=== PATIENT | female | born 1990 | race Hispanic/Latino ===

== ENCOUNTER 2021-05-23 22:35 | Emergency (ER) | payer SELFPAY ==
[~2021-05-23] VITALS: Ht 162.6 cm; Wt 81.6 kg
[2021-05-23] MEDS ORDERED: ONDANSETRON HCL INJ 2MG/ML 2ML 2 MG/ML VIAL IV STA (22:52)
[2021-05-23] MEDS ORDERED: SODIUM CHLORIDE 0.9% 1000ML 1,000 ML IV SCH (23:00)
[2021-05-23] MEDS ORDERED: DEXAMETHASONE SOD PHOS INJ 4 MG/ML VIAL IV ONE (23:00)
[2021-05-23] MEDS ORDERED: ONDANSETRON HCL INJ 2MG/ML 2ML 2 MG/ML VIAL ONE (23:04)
[2021-05-23] MEDS ORDERED: DEXAMETHASONE SOD PHOS INJ 4 MG/ML VIAL ONE (23:05)
[2021-05-23] MEDS ORDERED: SODIUM CHLORIDE 0.9% 1000ML 1,000 ML ONE (23:05)
[2021-05-23] MEDS ORDERED: PREDNISONE20 MG PO (23:26)
[2021-05-23] MEDS ORDERED: ONDANSETRON ODT4 MG PO (23:26)
== END 2021-05-23 23:55 | disposition home or self-care (01) ==
LOC: FSED 22:52
DX: R50.9 Fever, unspecified (principal); R11.2 Nausea with vomiting, unspecified; U07.1 COVID-19
CPT/HCPCS: 96374; 96376; 99282; J1100; J2405; J7030

== ENCOUNTER 2021-05-27 00:07 | Inpatient (IN) | payer SELFPAY ==
[2021-05-27] VITALS (7 sets, daily range): BP systolic 105–110; BP diastolic 57–70
[~2021-05-27] VITALS: Ht 160 cm; Wt 81.6 kg
[~2021-05-27 00:07] MED LIST: ONDANSETRON ODT4 MG PO; PREDNISONE20 MG PO
[2021-05-27] MEDS ORDERED: ONDANSETRON HCL INJ 2MG/ML 2ML 2 MG/ML VIAL IV STA (00:29)
[2021-05-27] MEDS ORDERED: IBUPROFEN 600 MG TAB PO STA (00:29)
[2021-05-27] MEDS ORDERED: SODIUM CHLORIDE 0.9% 1000ML 1,000 ML IV ONE (00:30)
[2021-05-27 01:27] LABS: BASOPHILS % 0.1 % (0.0-1.0); HEMATOCRIT 33.6 % (34.2-44.1); HEMOGLOBIN 9.7 g/dL (12.0-16.0); MEAN CORPUSCULAR HEMOGLOBIN 18.9 pg (28-32); MEAN CORPUSCULAR HGB CONC 28.9 g/dL (31-35); MEAN CORPUSCULAR VOLUME 65.6 fL (81-99); MONOCYTES # (AUTO) 0.3 (0.2-0.8); MONOCYTES % 3.4 % (4.4-11.3); NEUTROPHILS # (AUTO) 8.3 (2.1-6.9); PLATELET COUNT 297 x10e3/uL (140-360); RED BLOOD COUNT 5.12 x10e6/uL (3.6-5.1); RED CELL DISTRIBUTION WIDTH 16.8 % (11.7-14.4)
[2021-05-27 01:47] LABS: ALANINE AMINOTRANSFERASE 30 IU/L (0-55); ALBUMIN 3.6 g/dL (3.5-5.0); ALBUMIN/GLOBULIN RATIO 0.8 (0.8-2.0); ALKALINE PHOSPHATASE 141 IU/L (40-150); ANION GAP 17.5 mmol/L (8-16); BLOOD UREA NITROGEN 7 mg/dL (7-26); BUN/CREATININE RATIO 10 (6-25); CALCIUM 9.1 mg/dL (8.4-10.2); CARBON DIOXIDE 20 mmol/L (22-29); CHLORIDE 103 mmol/L (98-107); CREATINE KINASE 28 IU/L (29-168); CREATININE, SERUM 0.68 mg/dL (0.57-1.11); EST GLOMERULAR FILTRATION RATE 102 ML/MIN (60-); GLUCOSE 109 mg/dL (74-118); POTASSIUM 3.5 mmol/L (3.5-5.1); SODIUM 137 mmol/L (136-145)
[2021-05-27 02:33] LABS: CREATINE KINASE MB < 0.10 ng/mL (0-5.0)
[2021-05-27] MEDS ORDERED: IOPAMIDOL 370 MG/ML 200 ML INFUS..BTL INJ ONE (03:29)
[2021-05-27] MEDS ORDERED: SODIUM CHLORIDE 0.9% 50ML 50 ML ONE (03:30)
[2021-05-27] MEDS ORDERED: ENOXAPARIN INJ 80 MG/0.8 ML SYR SC SCH (03:45)
[2021-05-27] MEDS ORDERED: ONDANSETRON HCL INJ 2MG/ML 2ML 2 MG/ML VIAL IV PRN ×2 (03:45→17:00)
[2021-05-27] MEDS: DEXAMETHASONE SOD PHOS 10 MG/1 ML VIAL IV SCH (05:24)
[2021-05-27] MEDS: ENOXAPARIN 30 MG/0.3 ML SYR SC SCH ×2 (05:24→17:01)
[2021-05-27] MEDS ORDERED: CEFTRIAXONE 1 GM VIAL ONE (06:08)
[2021-05-27] MEDS ORDERED: SODIUM CHLORIDE 0.9% 100 ML ONE (06:09)
[2021-05-27] MEDS: CEFTRIAXONE 2 GM in SODIUM CHLORIDE 0.9% 100 ML IV SCH (06:28)
[2021-05-27] MEDS ORDERED: REMDESIVIR 200MG 200 MG IV ONE (09:00)
[2021-05-27] MEDS: ASCORBIC ACID 500 MG TAB PO SCH ×2 (09:00→16:53)
[2021-05-27] MEDS: ZINC SULFATE 50 MG CAP PO SCH (09:26)
[2021-05-27 12:08] LABS: HEMATOCRIT 30.1 % (34.2-44.1); HEMOGLOBIN 8.7 g/dL (12.0-16.0); LYMPHOCYTES # (AUTO) 0.5 (1.0-3.2); LYMPHOCYTES % 8.2 % (18.0-39.1); MEAN CORPUSCULAR HEMOGLOBIN 19.1 pg (28-32); MEAN CORPUSCULAR HGB CONC 28.9 g/dL (31-35); MONOCYTES # (AUTO) 0.2 (0.2-0.8); MONOCYTES % 2.7 % (4.4-11.3); NEUTROPHILS # (AUTO) 5.6 (2.1-6.9); NEUTROPHILS % 88.6 % (38.7-80.0); PLATELET COUNT 278 x10e3/uL (140-360); RED BLOOD COUNT 4.56 x10e6/uL (3.6-5.1); RED CELL DISTRIBUTION WIDTH 16.9 % (11.7-14.4)
[2021-05-27 13:02] LABS: ALBUMIN 3.2 g/dL (3.5-5.0); ALBUMIN/GLOBULIN RATIO 0.8 (0.8-2.0); ANION GAP 16.3 mmol/L (8-16); CALCIUM 9.1 mg/dL (8.4-10.2); CREATININE, SERUM 0.62 mg/dL (0.57-1.11); POTASSIUM 4.3 mmol/L (3.5-5.1)
[2021-05-27] MEDS ORDERED: SIMETHICONE 80 MG CHEW PO PRN (17:00)
[2021-05-27] MEDS ORDERED: GUAIFENESIN/CODEINE 10 ML CUP PO PRN (17:00)
[2021-05-27] MEDS ORDERED: ENOXAPARIN SOD INJ 40 MG/0.4 ML SYR SC SCH (17:00)
[2021-05-27] MEDS ORDERED: DEXTROSE 50% SYRINGE 50 ML IV PRN (17:00)
[2021-05-27] MEDS ORDERED: HYDRALAZINE HCL 20 MG/ML VIAL IV PRN (17:00)
[2021-05-27] MEDS ORDERED: LIDOCAINE 4% PATCH TP PRN (17:00)
[2021-05-27] MEDS ORDERED: DIPHENHYDRAMINE HCL 25 MG CAP PO PRN (17:00)
[2021-05-27] MEDS ORDERED: ALBUTEROL/IPRATROPIUM 3 ML NEB NEB PRN (17:00)
[2021-05-27] MEDS ORDERED: POTASSIUM CHLORIDE 20 MEQ TAB CR PO PRN (17:00)
[2021-05-27] MEDS ORDERED: MELATONIN 5 MG TABLET PO PRN (17:00)
[2021-05-27] MEDS: ACETAMINOPHEN 325 MG TAB PO PRN (21:22)
[2021-05-28] VITALS (9 sets, daily range): BP systolic 92–115; BP diastolic 57–65
[2021-05-28] MEDS: DOCUSATE SODIUM 100 MG CAP PO PRN (04:08)
[2021-05-28 05:37] LABS: BASOPHILS % 0.1 % (0.0-1.0); HEMATOCRIT 26.9 % (34.2-44.1); HEMOGLOBIN 7.8 g/dL (12.0-16.0); LYMPHOCYTES # (AUTO) 1.5 (1.0-3.2); LYMPHOCYTES % 19.9 % (18.0-39.1); MEAN CORPUSCULAR HEMOGLOBIN 18.9 pg (28-32); MEAN CORPUSCULAR VOLUME 65.1 fL (81-99); MONOCYTES # (AUTO) 0.6 (0.2-0.8); MONOCYTES % 8.7 % (4.4-11.3); NEUTROPHILS # (AUTO) 5.2 (2.1-6.9); NEUTROPHILS % 70.8 % (38.7-80.0); PLATELET COUNT 284 x10e3/uL (140-360); RED BLOOD COUNT 4.13 x10e6/uL (3.6-5.1); RED CELL DISTRIBUTION WIDTH 16.7 % (11.7-14.4)
[2021-05-28 06:30] LABS: ANION GAP 16.4 mmol/L (8-16); CALCIUM 8.4 mg/dL (8.4-10.2); CREATININE, SERUM 0.63 mg/dL (0.57-1.11); POTASSIUM 3.4 mmol/L (3.5-5.1)
[2021-05-28 08:01] LABS: FERRITIN 71.98 ng/mL (4.63-204.00)
[2021-05-28 08:49] LABS: ALBUMIN 2.9 g/dL (3.5-5.0); BILIRUBIN,DIRECT 0.2 mg/dL (0.0-0.5)
[2021-05-28 08:52] LABS: LYMPHOCYTES % (MANUAL) 12 % (19-48); MONOCYTES % (MANUAL) 11 % (3.4-9.0); NEUTROPHILS % (MANUAL) 77 % (40-74)
[2021-05-28 08:53] LABS: HYPOCHROMASIA SLIGHT; MICROCYTOSIS SLIGHT
[2021-05-28 08:54] LABS: ANISOCYTOSIS SLIGHT
[2021-05-28 08:55] LABS: ELLIPTOCYTE, RBC SLIGHT; OVALOCYTES FEW
[2021-05-28] MEDS: DEXAMETHASONE SOD PHOS 10 MG/1 ML VIAL IV SCH (08:55)
[2021-05-28] MEDS: ASCORBIC ACID 500 MG TAB PO SCH ×2 (08:55→17:21)
[2021-05-28] MEDS: PANTOPRAZOLE SOD 40 MG TABEC PO SCH (08:55)
[2021-05-28] MEDS: ENOXAPARIN 30 MG/0.3 ML SYR SC SCH ×2 (08:55→17:22)
[2021-05-28] MEDS: ZINC SULFATE 50 MG CAP PO SCH (08:55)
[2021-05-28 08:56] LABS: PLATELET ESTIMATE ADEQUATE; PLATELET MORPHOLOGY COMMENT NORMAL; RBC MORPHOLOGY COMMENT ABNORMAL
[2021-05-28] MEDS: ACETAMINOPHEN 325 MG TAB PO PRN (09:41)
[2021-05-28] MEDS: REMDESIVIR 100MG 100 MG IV SCH (09:55)
[2021-05-28] MEDS: CEFTRIAXONE 2 GM in SODIUM CHLORIDE 0.9% 100 ML IV SCH (11:38)
[2021-05-29] VITALS (9 sets, daily range): BP systolic 84–102; BP diastolic 53–60
[2021-05-29 05:38] LABS: BASOPHILS % 0.2 % (0.0-1.0); HEMATOCRIT 26.8 % (34.2-44.1); HEMOGLOBIN 7.6 g/dL (12.0-16.0); LYMPHOCYTES # (AUTO) 1.4 (1.0-3.2); LYMPHOCYTES % 31.3 % (18.0-39.1); MEAN CORPUSCULAR HEMOGLOBIN 18.4 pg (28-32); MEAN CORPUSCULAR HGB CONC 28.4 g/dL (31-35); MONOCYTES # (AUTO) 0.7 (0.2-0.8); MONOCYTES % 14.8 % (4.4-11.3); NEUTROPHILS # (AUTO) 2.4 (2.1-6.9); NEUTROPHILS % 52.8 % (38.7-80.0); PLATELET COUNT 328 x10e3/uL (140-360); RED BLOOD COUNT 4.12 x10e6/uL (3.6-5.1); RED CELL DISTRIBUTION WIDTH 16.7 % (11.7-14.4)
[2021-05-29 06:19] LABS: ALBUMIN 3.3 g/dL (3.5-5.0); ALBUMIN/GLOBULIN RATIO 1.2 (0.8-2.0); ANION GAP 14.5 mmol/L (8-16); CALCIUM 8.4 mg/dL (8.4-10.2); CREATININE, SERUM 0.65 mg/dL (0.57-1.11); POTASSIUM 3.5 mmol/L (3.5-5.1)
[2021-05-29] MEDS: PANTOPRAZOLE SOD 40 MG TABEC PO SCH (08:27)
[2021-05-29] MEDS: DEXAMETHASONE SOD PHOS 10 MG/1 ML VIAL IV SCH (09:48)
[2021-05-29] MEDS: CEFTRIAXONE 2 GM in SODIUM CHLORIDE 0.9% 100 ML IV SCH (09:48)
[2021-05-29] MEDS: ASCORBIC ACID 500 MG TAB PO SCH ×2 (09:49→16:54)
[2021-05-29] MEDS: ZINC SULFATE 50 MG CAP PO SCH (09:49)
[2021-05-29] MEDS: ENOXAPARIN 30 MG/0.3 ML SYR SC SCH ×2 (09:49→16:54)
[2021-05-29] MEDS: REMDESIVIR 100MG 100 MG IV SCH (10:37)
[2021-05-29] MEDS: DOCUSATE SODIUM 100 MG CAP PO PRN (21:30)
[2021-05-30] VITALS (10 sets, daily range): BP systolic 92–106; BP diastolic 54–69
[2021-05-30 07:17] LABS: BASOPHILS % 0.2 % (0.0-1.0); HEMATOCRIT 27.5 % (34.2-44.1); HEMOGLOBIN 7.8 g/dL (12.0-16.0); LYMPHOCYTES # (AUTO) 2.1 (1.0-3.2); LYMPHOCYTES % 37.4 % (18.0-39.1); MEAN CORPUSCULAR HEMOGLOBIN 18.7 pg (28-32); MEAN CORPUSCULAR HGB CONC 28.4 g/dL (31-35); MEAN CORPUSCULAR VOLUME 65.9 fL (81-99); MONOCYTES # (AUTO) 0.6 (0.2-0.8); NEUTROPHILS # (AUTO) 2.8 (2.1-6.9); PLATELET COUNT 373 x10e3/uL (140-360); RED BLOOD COUNT 4.17 x10e6/uL (3.6-5.1); RED CELL DISTRIBUTION WIDTH 16.8 % (11.7-14.4)
[2021-05-30 07:59] LABS: ALBUMIN 3.3 g/dL (3.5-5.0); ANION GAP 12.7 mmol/L (8-16); CALCIUM 8.5 mg/dL (8.4-10.2); CREATININE, SERUM 0.62 mg/dL (0.57-1.11); POTASSIUM 3.7 mmol/L (3.5-5.1)
[2021-05-30] MEDS: PANTOPRAZOLE SOD 40 MG TABEC PO SCH (08:13)
[2021-05-30 08:36] LABS: LYMPHOCYTES % (MANUAL) 35 % (19-48); MONOCYTES % (MANUAL) 14 % (3.4-9.0); NEUTROPHILS % (MANUAL) 51 % (40-74); NUCLEATED RED BLOOD CELLS 1; PLATELET ESTIMATE ADEQUATE; PLATELET MORPHOLOGY COMMENT NORMAL; RBC MORPHOLOGY COMMENT ABNORMAL
[2021-05-30 08:37] LABS: ANISOCYTOSIS MODERATE; MICROCYTOSIS MODERATE; OVALOCYTES FEW; POLYCHROMASIA FEW
[2021-05-30] MEDS: CEFTRIAXONE 2 GM in SODIUM CHLORIDE 0.9% 100 ML IV SCH (10:24)
[2021-05-30] MEDS: ASCORBIC ACID 500 MG TAB PO SCH ×2 (10:24→16:19)
[2021-05-30] MEDS: DEXAMETHASONE SOD PHOS 10 MG/1 ML VIAL IV SCH (10:24)
[2021-05-30] MEDS: ZINC SULFATE 50 MG CAP PO SCH (10:24)
[2021-05-30] MEDS: ENOXAPARIN 30 MG/0.3 ML SYR SC SCH ×2 (10:25→16:19)
[2021-05-30] MEDS: REMDESIVIR 100MG 100 MG IV SCH (10:28)
[2021-05-31] VITALS (7 sets, daily range): BP systolic 94–104; BP diastolic 58–68
[2021-05-31 06:50] LABS: BASOPHILS % 0.1 % (0.0-1.0); HEMATOCRIT 28.3 % (34.2-44.1); HEMOGLOBIN 8.1 g/dL (12.0-16.0); LYMPHOCYTES # (AUTO) 2.4 (1.0-3.2); LYMPHOCYTES % 34.5 % (18.0-39.1); MEAN CORPUSCULAR HEMOGLOBIN 18.6 pg (28-32); MEAN CORPUSCULAR HGB CONC 28.6 g/dL (31-35); MEAN CORPUSCULAR VOLUME 65.1 fL (81-99); MONOCYTES % 14.5 % (4.4-11.3); NEUTROPHILS # (AUTO) 3.4 (2.1-6.9); NEUTROPHILS % 49.6 % (38.7-80.0); PLATELET COUNT 389 x10e3/uL (140-360); RED BLOOD COUNT 4.35 x10e6/uL (3.6-5.1); RED CELL DISTRIBUTION WIDTH 16.6 % (11.7-14.4)
[2021-05-31 07:28] LABS: ALBUMIN 3.3 g/dL (3.5-5.0); ALBUMIN/GLOBULIN RATIO 1.1 (0.8-2.0); ANION GAP 13.6 mmol/L (8-16); CALCIUM 8.3 mg/dL (8.4-10.2); CREATININE, SERUM 0.63 mg/dL (0.57-1.11); POTASSIUM 3.6 mmol/L (3.5-5.1)
[2021-05-31] MEDS: PANTOPRAZOLE SOD 40 MG TABEC PO SCH (08:05)
[2021-05-31 08:50] LABS: ANISOCYTOSIS MODERATE; LYMPHOCYTES % (MANUAL) 33 % (19-48); MICROCYTOSIS MODERATE; MONOCYTES % (MANUAL) 9 % (3.4-9.0); NEUTROPHILS % (MANUAL) 57 % (40-74); PLATELET ESTIMATE ADEQUATE; PLATELET MORPHOLOGY COMMENT NORMAL; RBC MORPHOLOGY COMMENT ABNORMAL
[2021-05-31 08:51] LABS: HYPOCHROMASIA MODERATE; OVALOCYTES FEW
[2021-05-31] MEDS: CEFTRIAXONE 2 GM in SODIUM CHLORIDE 0.9% 100 ML IV SCH (10:07)
[2021-05-31] MEDS: ASCORBIC ACID 500 MG TAB PO SCH ×2 (10:07→17:07)
[2021-05-31] MEDS: ZINC SULFATE 50 MG CAP PO SCH (10:07)
[2021-05-31] MEDS: ENOXAPARIN 30 MG/0.3 ML SYR SC SCH ×2 (10:07→17:07)
[2021-05-31] MEDS: DEXAMETHASONE SOD PHOS 10 MG/1 ML VIAL IV SCH (10:07)
[2021-05-31] MEDS: REMDESIVIR 100MG 100 MG IV SCH (10:45)
[2021-05-31] MEDS: ACETAMINOPHEN 325 MG TAB PO PRN (13:27)
[2021-06-01 00:25] VITALS: BP 107/74
[2021-06-01 04:31] VITALS: BP 104/69
[2021-06-01] MEDS: ACETAMINOPHEN 325 MG TAB PO PRN (04:40)
[2021-06-01 07:08] LABS: BASOPHILS % 0.2 % (0.0-1.0); HEMATOCRIT 29.9 % (34.2-44.1); HEMOGLOBIN 8.7 g/dL (12.0-16.0); LYMPHOCYTES # (AUTO) 2.5 (1.0-3.2); LYMPHOCYTES % 30.2 % (18.0-39.1); MEAN CORPUSCULAR HEMOGLOBIN 18.9 pg (28-32); MEAN CORPUSCULAR HGB CONC 29.1 g/dL (31-35); MONOCYTES # (AUTO) 1.3 (0.2-0.8); MONOCYTES % 15.5 % (4.4-11.3); NEUTROPHILS # (AUTO) 4.3 (2.1-6.9); NEUTROPHILS % 51.9 % (38.7-80.0); PLATELET COUNT 451 x10e3/uL (140-360); RED CELL DISTRIBUTION WIDTH 16.9 % (11.7-14.4)
[2021-06-01 07:27] LABS: ALBUMIN 3.4 g/dL (3.5-5.0); ALBUMIN/GLOBULIN RATIO 1.1 (0.8-2.0); ANION GAP 16.3 mmol/L (8-16); CALCIUM 8.3 mg/dL (8.4-10.2); CREATININE, SERUM 0.59 mg/dL (0.57-1.11); POTASSIUM 3.3 mmol/L (3.5-5.1)
[2021-06-01] MEDS: PANTOPRAZOLE SOD 40 MG TABEC PO SCH (07:38)
[2021-06-01 07:58] VITALS: BP 103/73
[2021-06-01] MEDS: ZINC SULFATE 50 MG CAP PO SCH (08:49)
[2021-06-01] MEDS: ASCORBIC ACID 500 MG TAB PO SCH (08:49)
[2021-06-01] MEDS: ENOXAPARIN 30 MG/0.3 ML SYR SC SCH (08:49)
[2021-06-01] MEDS: DEXAMETHASONE SOD PHOS 10 MG/1 ML VIAL IV SCH (08:49)
[2021-06-01 10:39] LABS: LYMPHOCYTES % (MANUAL) 36 % (19-48); MONOCYTES % (MANUAL) 10 % (3.4-9.0); NEUTROPHILS % (MANUAL) 54 % (40-74)
[2021-06-01 10:40] LABS: ANISOCYTOSIS MODERATE; HYPOCHROMASIA SLIGHT; MICROCYTOSIS MODERATE; PLATELET ESTIMATE ADEQUATE; PLATELET MORPHOLOGY COMMENT NORMAL; POIKILOCYTOSIS SLIGHT; RBC MORPHOLOGY COMMENT ABNORMAL
[2021-06-01 11:37] VITALS: BP 106/70
[2021-06-01] MEDS ORDERED: ONDANSETRON HCL 4 MG ORAL DISINTEGRATING TAB PO PRN (12:45)
== END 2021-06-01 12:54 | disposition home or self-care (01) | DRG 871 ==
LOC: ER 00:31 → ERHOLD 05:48 → MED/SURG3 10:56
PROVIDERS: ADMIT Internal Medicine; ATTEND Internal Medicine
PROC: 3E0333Z Introduction of Anti-inflammatory into Peripheral Vein, Percutaneous Approach (ICD-10-PCS; principal; 2021-05-27)
PROC: XW033E5 Introduction of Remdesivir Anti-infective into Peripheral Vein, Percutaneous Approach, New Technology Group 5 (ICD-10-PCS; 2021-05-27)
DX: A41.89 Other specified sepsis (principal); U07.1 COVID-19; J12.82 Pneumonia due to coronavirus disease 2019; J96.01 Acute respiratory failure with hypoxia; B17.8 Other specified acute viral hepatitis; R65.20 Severe sepsis without septic shock; D50.9 Iron deficiency anemia, unspecified; D50.0 Iron deficiency anemia secondary to blood loss (chronic); E87.6 Hypokalemia
CPT/HCPCS: 36415; 71045; 71260; 80048; 80053; 80076; 82550; 82553; 82728; 84484; 84702; 85025; 85379; 86140; 93005; 99284; J0456; J0696; J1100; J1650; J2405; J7030; J7050; Q9967; U0002

== ENCOUNTER 2022-05-21 06:19 | Emergency (ER) | payer MEDICARE, SELFPAY ==
[~2022-05-21] VITALS: Ht 160 cm; Wt 81.6 kg
[2022-05-21] MEDS ORDERED: CEFTRIAXONE 1 GM VIAL IV STA (06:25)
[2022-05-21] MEDS ORDERED: CYCLOBENZAPRINE HCL 10 MG TAB PO ONE (06:30)
[2022-05-21] MEDS ORDERED: ACETAMINOPHEN 325 MG TAB PO ONE (06:30)
[2022-05-21] MEDS ORDERED: SODIUM CHLORIDE 0.9% IV SCH (06:30)
[2022-05-21] MEDS ORDERED: CEFTRIAXONE 1 GM VIAL ONE (06:46)
[2022-05-21] MEDS ORDERED: SODIUM CHLORIDE 0.9% 500ML 500 ML ONE (06:56)
[2022-05-21 07:01] LABS: BASOPHILS # (AUTO) 0.1 (0.0-0.1); BASOPHILS % 0.7 % (0.0-1.0); EOSINOPHILS % 0.1 % (0.0-6.0); HEMATOCRIT 26.3 % (34.2-44.1); HEMOGLOBIN 7.1 g/dL (12.0-16.0); LYMPHOCYTES # (AUTO) 0.8 (1.0-3.2); LYMPHOCYTES % 9.1 % (18.0-39.1); MEAN CORPUSCULAR HEMOGLOBIN 16.5 pg (28-32); MEAN CORPUSCULAR VOLUME 61.2 fL (81-99); MONOCYTES # (AUTO) 0.7 (0.2-0.8); MONOCYTES % 8.7 % (4.4-11.3); NEUTROPHILS # (AUTO) 6.8 (2.1-6.9); NEUTROPHILS % 80.9 % (38.7-80.0); PLATELET COUNT 410 x10e3/uL (140-360); RED CELL DISTRIBUTION WIDTH 18.4 % (11.7-14.4)
[2022-05-21 07:09] LABS: INR 0.99; PARTIAL THROMBOPLASTIN TIME 30.3 seconds (23.8-35.5)
[2022-05-21 07:17] LABS: CLARITY,URINE HAZY (CLEAR); COLOR,URINE YELLOW (YELLOW)
[2022-05-21 07:18] LABS: KETONES,URINE TRACE (NEGATIVE); LEUKOCYTE ESTERASE ,URINE TRACE (NEGATIVE); NITRITE,URINE NEGATIVE (NEGATIVE); PROTEIN,URINE DIPSTICK 2+ (NEGATIVE); URINE UROBILINOGEN 1 mg/dL (0.2 - 1)
[2022-05-21 07:18] LABS: ALANINE AMINOTRANSFERASE 43 IU/L (0-55); ALBUMIN 3.9 g/dL (3.5-5.0); ALBUMIN/GLOBULIN RATIO 0.9 (0.8-2.0); ALKALINE PHOSPHATASE 134 IU/L (40-150); ANION GAP 15.6 mmol/L (8-16); BLOOD UREA NITROGEN 10 mg/dL (7-26); BUN/CREATININE RATIO 14 (6-25); CALCIUM 9.1 mg/dL (8.4-10.2); CARBON DIOXIDE 21 mmol/L (22-29); CHLORIDE 105 mmol/L (98-107); GLUCOSE 114 mg/dL (74-118); POTASSIUM 3.6 mmol/L (3.5-5.1); SODIUM 138 mmol/L (136-145)
[2022-05-21 07:19] LABS: RBC,URINE >50 /HPF (0-5); WBC,URINE (MAN) 0-5 /HPF (0-5)
[2022-05-21 07:20] LABS: BACTERIA,URINE MODERATE /HPF; EPITHELIAL CELLS,URINE MANY /LPF
[2022-05-21 07:59] LABS: ELLIPTOCYTE, RBC SLIGHT; HYPOCHROMASIA MODERATE; MICROCYTOSIS MODERATE
[2022-05-21 08:00] LABS: ANISOCYTOSIS SLIGHT
[2022-05-21 08:01] LABS: PLATELET ESTIMATE MODERATELY INCREASED; PLATELET MORPHOLOGY COMMENT NORMAL
[2022-05-21] MEDS ORDERED: IBUPROFEN 600 MG TAB PO STA (08:43)
== END 2022-05-21 12:48 | disposition home or self-care (01) ==
LOC: ER 06:22
DX: R50.9 Fever, unspecified (principal); U07.1 COVID-19; M54.2 Cervicalgia
CPT/HCPCS: 36415; 71046; 80053; 81001; 83518; 83605; 84702; 85025; 85610; 85730; 87070; 87086; 87186; 99284; J0696; J7030; J7040; U0002

== ENCOUNTER 2022-05-30 11:09 | Emergency (ER) | payer SELFPAY ==
[~2022-05-30] VITALS: Ht 160 cm; Wt 81.6 kg
[2022-05-30] MEDS ORDERED: SODIUM CHLORIDE 0.9% 1000ML 1,000 ML IV STA (11:32)
[2022-05-30] MEDS ORDERED: KETOROLAC TROMETHAMINE 30 MG/ML VIAL IV ONE (11:45)
[2022-05-30] MEDS ORDERED: DEXAMETHASONE SOD PHOS 10 MG/1 ML VIAL IV ONE (11:45)
[2022-05-30] MEDS ORDERED: DIPHENHYDRAMINE HCL INJ 50 MG/ML VIAL IV PRN (11:45)
[2022-05-30] MEDS ORDERED: METOCLOPRAMIDE HCL 10 MG/2ML VIAL IV ONE (11:45)
[2022-05-30 11:49] LABS: BASOPHILS % 0.3 % (0.0-1.0); EOSINOPHILS % 0.1 % (0.0-6.0); HEMATOCRIT 25.5 % (34.2-44.1); LYMPHOCYTES # (AUTO) 2.8 (1.0-3.2); LYMPHOCYTES % 28.8 % (18.0-39.1); MEAN CORPUSCULAR HEMOGLOBIN 16.3 pg (28-32); MEAN CORPUSCULAR HGB CONC 26.7 g/dL (31-35); MEAN CORPUSCULAR VOLUME 61.3 fL (81-99); MONOCYTES # (AUTO) 0.9 (0.2-0.8); MONOCYTES % 9.1 % (4.4-11.3); NEUTROPHILS # (AUTO) 5.8 (2.1-6.9); NEUTROPHILS % 59.8 % (38.7-80.0); PLATELET COUNT 279 x10e3/uL (140-360); RED BLOOD COUNT 4.16 x10e6/uL (3.6-5.1); RED CELL DISTRIBUTION WIDTH 18.7 % (11.7-14.4)
[2022-05-30 11:52] LABS: HEMOGLOBIN 6.8 g/dL (12.0-16.0)
[2022-05-30 12:09] LABS: ALBUMIN 3.1 g/dL (3.5-5.0); ALBUMIN/GLOBULIN RATIO 0.7 (0.8-2.0); ANION GAP 15.3 mmol/L (8-16); CALCIUM 8.9 mg/dL (8.4-10.2); CREATININE, SERUM 0.66 mg/dL (0.57-1.11); POTASSIUM 3.3 mmol/L (3.5-5.1)
[2022-05-30 12:23] LABS: CLARITY,URINE SL CLOUDY (CLEAR); COLOR,URINE YELLOW (YELLOW); KETONES,URINE NEGATIVE (NEGATIVE); LEUKOCYTE ESTERASE ,URINE NEGATIVE (NEGATIVE); NITRITE,URINE NEGATIVE (NEGATIVE); PROTEIN,URINE DIPSTICK TRACE (NEGATIVE); URINE UROBILINOGEN 0.2 mg/dL (0.2 - 1)
[2022-05-30 12:31] LABS: BACTERIA,URINE MANY /HPF; EPITHELIAL CELLS,URINE MANY /LPF; RBC,URINE 0-5 /HPF (0-5)
== END 2022-05-30 13:21 | disposition home or self-care (01) ==
LOC: ER 11:11
DX: R50.9 Fever, unspecified (principal); R51.9 Headache, unspecified; M54.2 Cervicalgia
CPT/HCPCS: 36415; 70450; 71046; 72125; 80053; 81001; 81025; 85025; 99284; J1100; J1200; J1885; J2765; J7030

== ENCOUNTER 2023-01-27 17:50 | Emergency (ER) | payer MEDICARE, SELFPAY ==
[~2023-01-27] VITALS: Ht 162.6 cm; Wt 79.8 kg
[2023-01-27] MEDS ORDERED: PREDNISONE50 MG PO (18:40)
[2023-01-27] MEDS ORDERED: ACYCLOVIR800 MG PO (18:40)
[2023-01-27 20:10] VITALS: BP 129/80
== END 2023-01-27 20:15 | disposition home or self-care (01) ==
LOC: ER 17:54
DX: G51.0 Bell's palsy (principal); D64.9 Anemia, unspecified
CPT/HCPCS: 70450; 99283

== ENCOUNTER 2024-06-08 13:49 | Emergency (ER) | payer OTHER, SELFPAY ==
[~2024-06-08] VITALS: Ht 162.6 cm; Wt 78.9 kg
[~2024-06-08 13:49] MED LIST changes: +ACETAMINOPHEN325 M1 PO; +ACYCLOVIR800 MG PO; +CEPHALEXIN500 MG PO; +COLACE100 M1 PO; +DULCOLAX STOOL100 MG PO; +HYDROCODON-ACE1 EA11 PO; +IRON325 M1 PO; +PREDNISONE50 MG PO; +VITAMIN C 500500 MG PO
[2024-06-08 14:00] VITALS: TEMP 98.5
[2024-06-08 14:44] LABS: BASOPHILS # (AUTO) 0.1 (0.0-0.1); BASOPHILS % 0.7 % (0.0-1.0); EOSINOPHILS % 0.5 % (0.0-6.0); HEMATOCRIT 29.3 % (34.2-44.1); LYMPHOCYTES # (AUTO) 1.6 (1.0-3.2); LYMPHOCYTES % 19.6 % (18.0-39.1); MEAN CORPUSCULAR HEMOGLOBIN 17.5 pg (28-32); MEAN CORPUSCULAR HGB CONC 27.3 g/dL (31-35); MEAN CORPUSCULAR VOLUME 64.1 fL (81-99); MONOCYTES # (AUTO) 0.6 (0.2-0.8); MONOCYTES % 7.6 % (4.4-11.3); NEUTROPHILS # (AUTO) 5.9 (2.1-6.9); NEUTROPHILS % 71.4 % (38.7-80.0); PLATELET COUNT 353 x10e3/uL (140-360); RED BLOOD COUNT 4.57 x10e6/uL (3.6-5.1); RED CELL DISTRIBUTION WIDTH 17.3 % (11.7-14.4); WHITE BLOOD COUNT 8.28 x10e3/uL (4.8-10.8)
[2024-06-08 15:03] LABS: ALBUMIN 4.3 g/dL (3.5-5.0); ALBUMIN/GLOBULIN RATIO 1.3 (0.8-2.0); ANION GAP 14.7 mmol/L (8-16); BILIRUBIN,TOTAL 0.3 mg/dL (0.2-1.2); CALCIUM 9.4 mg/dL (8.4-10.2); CREATININE, SERUM 0.67 mg/dL (0.57-1.11); POTASSIUM 3.7 mmol/L (3.5-5.1); TOTAL PROTEIN 7.6 g/dL (6.5-8.1)
[2024-06-08 15:04] LABS: BILIRUBIN,URINE NEGATIVE (NEGATIVE); CLARITY,URINE CLEAR (CLEAR); COLOR,URINE YELLOW (YELLOW); GLUCOSE, URINE NEGATIVE (NEGATIVE); KETONES,URINE NEGATIVE (NEGATIVE); LEUKOCYTE ESTERASE ,URINE TRACE (NEGATIVE); NITRITE,URINE NEGATIVE (NEGATIVE); PH,URINE 6 (5 - 7); PROTEIN,URINE DIPSTICK NEGATIVE (NEGATIVE); URINE UROBILINOGEN 0.2 mg/dL (0.2 - 1)
[2024-06-08 15:18] LABS: BACTERIA,URINE FEW /HPF; EPITHELIAL CELLS,URINE FEW /LPF; WBC,URINE (MAN) 0-5 /HPF (0-5)
[2024-06-08] MEDS: SODIUM CHLORIDE 0.9% 1000ML 1,000 ML IV ONE (15:26)
[2024-06-08 17:00] VITALS: PULSE 77; RESP 16
[2024-06-08 17:18] VITALS: BP 101/61; PULSE 77; RESP 16; O2SAT 100
== END 2024-06-08 17:10 | disposition home or self-care (01) ==
LOC: ER 14:04
DX: R10.12 Left upper quadrant pain (principal); D64.9 Anemia, unspecified
CPT/HCPCS: 36415; 74177; 80053; 81001; 83690; 84702; 85025; 99284; J7030

== ENCOUNTER 2024-07-27 09:34 | Emergency (ER) | payer OTHER ==
[~2024-07-27] VITALS: Ht 162.6 cm; Wt 78.9 kg
[2024-07-27 09:46] VITALS: PULSE 84; RESP 18; TEMP 98.2; O2SAT 100
[2024-07-27] MEDS ORDERED: KETOROLAC TROMETHAMINE 30 MG/ML VIAL IV STA (09:59)
[2024-07-27] MEDS: SODIUM CHLORIDE 0.9% 1000ML 1,000 ML IV STA (10:43)
[2024-07-27] MEDS: ONDANSETRON HCL INJ 2MG/ML 2ML 2 MG/ML VIAL IV STA (10:43)
[2024-07-27 11:10] LABS: BASOPHILS % 0.7 % (0.0-1.0); EOSINOPHILS % 0.5 % (0.0-6.0); HEMATOCRIT 29.6 % (34.2-44.1); LYMPHOCYTES # (AUTO) 1.1 (1.0-3.2); LYMPHOCYTES % 20.3 % (18.0-39.1); MEAN CORPUSCULAR HEMOGLOBIN 17.1 pg (28-32); MEAN CORPUSCULAR HGB CONC 26.4 g/dL (31-35); MEAN CORPUSCULAR VOLUME 64.8 fL (81-99); MONOCYTES # (AUTO) 0.9 (0.2-0.8); MONOCYTES % 15.5 % (4.4-11.3); NEUTROPHILS # (AUTO) 3.5 (2.1-6.9); NEUTROPHILS % 62.8 % (38.7-80.0); PLATELET COUNT 345 x10e3/uL (140-360); RED BLOOD COUNT 4.57 x10e6/uL (3.6-5.1); RED CELL DISTRIBUTION WIDTH 17.7 % (11.7-14.4); WHITE BLOOD COUNT 5.56 x10e3/uL (4.8-10.8)
[2024-07-27 11:11] LABS: HEMOGLOBIN 7.8 g/dL (12.0-16.0)
[2024-07-27 11:33] LABS: ALANINE AMINOTRANSFERASE 24 IU/L (0-55); ALBUMIN 4.1 g/dL (3.5-5.0); ALBUMIN/GLOBULIN RATIO 1.2 (0.8-2.0); ALKALINE PHOSPHATASE 94 IU/L (40-150); ANION GAP 13.3 mmol/L (8-16); BILIRUBIN,TOTAL 0.5 mg/dL (0.2-1.2); BLOOD UREA NITROGEN 10 mg/dL (7-26); BUN/CREATININE RATIO 14 (6-25); CALCIUM 9.5 mg/dL (8.4-10.2); CARBON DIOXIDE 24 mmol/L (22-29); CHLORIDE 103 mmol/L (98-107); CREATININE, SERUM 0.69 mg/dL (0.57-1.11); EST GLOMERULAR FILTRATION RATE 118 ML/MIN (>=60); GLUCOSE 87 mg/dL (74-118); POTASSIUM 3.3 mmol/L (3.5-5.1); SODIUM 137 mmol/L (136-145); TOTAL PROTEIN 7.5 g/dL (6.5-8.1)
[2024-07-27 12:30] LABS: AMPHETAMINES SCREEN,URINE NEGATIVE (NEGATIVE); BENZODIAZEPINES SCREEN,URINE NEGATIVE (NEGATIVE); BILIRUBIN,URINE NEGATIVE (NEGATIVE); CANNABINOIDS SCREEN,URINE NEGATIVE (NEGATIVE); CLARITY,URINE CLOUDY (CLEAR); COLOR,URINE YELLOW (YELLOW); GLUCOSE, URINE NEGATIVE (NEGATIVE); KETONES,URINE NEGATIVE (NEGATIVE); LEUKOCYTE ESTERASE ,URINE NEGATIVE (NEGATIVE); METHADONE SCREEN, URINE NEGATIVE (NEGATIVE); NITRITE,URINE NEGATIVE (NEGATIVE); OPIATES SCREEN,URINE NEGATIVE (NEGATIVE); PH,URINE 6.5 (5 - 7); PHENCYCLIDINE SCREEN,URINE NEGATIVE (NEGATIVE); PROTEIN,URINE DIPSTICK NEGATIVE (NEGATIVE); URINE UROBILINOGEN 0.2 mg/dL (0.2 - 1)
[2024-07-27 12:57] LABS: BACTERIA,URINE FEW /HPF; EPITHELIAL CELLS,URINE MODERATE /LPF; RBC,URINE 0-5 /HPF (0-5); WBC,URINE (MAN) 0-5 /HPF (0-5)
[2024-07-27] MEDS ORDERED: PANTOPRAZOLE SO40 MG PO (14:13)
[2024-07-27] MEDS ORDERED: ONDANSETRON ODT4 MG PO (14:13)
== END 2024-07-27 14:57 | disposition home or self-care (01) ==
LOC: ER 09:46
DX: D64.9 Anemia, unspecified (principal); R11.2 Nausea with vomiting, unspecified
CPT/HCPCS: 36415; 71045; 80053; 80307; 81001; 83735; 84702; 85025; 87086; 99283; J2405; J2470; J7030

== ENCOUNTER 2024-12-28 13:06 | Emergency (ER) | payer OTHER ==
[~2024-12-28] VITALS: Ht 162.6 cm; Wt 78.9 kg
[~2024-12-28 13:06] MED LIST changes: +PANTOPRAZOLE SO40 MG PO
[2024-12-28 14:01] VITALS: PULSE 90; RESP 18; TEMP 97.8; O2SAT 100
== END 2024-12-28 14:20 | disposition home or self-care (01) ==
LOC: ER 14:18
DX: R07.89 Other chest pain (principal); T65.891A Toxic effect of other specified substances, accidental (unintentional), initial encounter; J68.0 Bronchitis and pneumonitis due to chemicals, gases, fumes and vapors; Y92.89 Other specified places as the place of occurrence of the external cause; D64.9 Anemia, unspecified
CPT/HCPCS: 99282